=== PATIENT | male | born 1985 | race Caucasian/White ===

== ENCOUNTER 2022-03-06 09:55 | Emergency (ER) | payer OTHER ==
[~2022-03-06] VITALS: Ht 177.8 cm; Wt 79.4 kg
[2022-03-06 09:56] VITALS: BP 127/87
--- NOTE | 2022-03-06 11:21 | NUR ---
PT LEFT WITHOUT DC PAPERWORK
== END 2022-03-06 11:21 | disposition home or self-care (01) ==
LOC: MED 09:55
DX: F41.9 Anxiety disorder, unspecified (principal); F15.90 Other stimulant use, unspecified, uncomplicated; Z72.89 Other problems related to lifestyle
CPT/HCPCS: 99283